=== PATIENT | female | born 1980 ===

== ENCOUNTER → 2017-02-17 | Outpatient (CLI) | payer OTHER | LOC: FIMAGING 09:33 | DX: T85.49XA Other mechanical complication of breast prosthesis and implant, initial encounter (principal) | CPT/HCPCS: G0204 ==

== ENCOUNTER → 2018-12-07 | Outpatient (CLI) | payer OTHER | LOC: FIMAGING 09:36 | DX: N63.0 Unspecified lump in unspecified breast (principal) ==